=== PATIENT | female | born 1980 | race Caucasian/White ===

== ENCOUNTER 2017-08-21 19:44 | Emergency (ER) | payer BC ==
--- NOTE | 2017-08-21 20:19 | EDM.PDOC ---
<Aidee Quintana - Last Filed: 08/21/17 21:48> ED HPI GENERAL MEDICAL PROBLEM - General Chief Complaint: General Stated Complaint: CHEST PAIN/BODYACHES/ITCHY Time Seen by Provider: 08/21/17 20:00 Source of Information: Reports: Patient History Limitations: Reports: No Limitations - History of Present Illness INITIAL COMMENTS - FREE TEXT/NARRATIVE: HISTORY AND PHYSICAL: History of present illness: [Patient comes to the emergency room complaining of upper abdominal discomfort. The pain has been coming and going for the past 3 days and feels like a squeezing/pressure sensation across her epigastric area, much worse on the right side. She has a history of acid reflux and has been taking Protonix 40 mg consistently for the last several years. The pain that she is experiencing today feels different. She's noticed that her pain is worse after eating meals of any type of food. She was unable to get comfortable last evening due to the pain in her abdomen. She's not had any fever or chills, chest pain, shortness of breath or difficulty breathing. No nausea or vomiting. No constipation or diarrhea. She has not taken any medication for her pain. She is due to the area and has not established with a local PCP. She smokes one pack of cigarettes per day. Denies alcohol use, and no history of heavy alcohol use. Denies history of hepatitis. Denies history of IV drug use. ] Review of systems: As per history of present illness and below otherwise all systems reviewed and negative. Past medical history: As per history of present illness and as reviewed below otherwise noncontributory. Surgical history: As per history of present illness and as reviewed below otherwise noncontributory. Social history: No reported history of drug or alcohol abuse. Family history: As per history of present illness and as reviewed below otherwise noncontributory. Physical exam: General: Well developed, well nourished female in no acute distress. Skin is warm, dry, pink, intact, anicteric. HEENT: Atraumatic, normocephalic. Oral mucous membranes are pink and moist. Neck supple, no lymphadenopathy. Lungs: Clear to auscultation, breath sounds equal bilaterally. No wheezing crackles or rales Heart: S1S2, regular rate and rhythm. Abdomen: Bowel sounds are normoactive throughout. She is tender with palpation over the right upper quadrant of her abdomen. Mild epigastric discomfort with palpation. No CVA tenderness. Abdomen is soft and not distended. Pelvis: Stable nontender. Genitourinary: Deferred. Rectal: Deferred. Extremities: Atraumatic, no cyanosis or edema to feet or lower legs. Neurovascular unremarkable. Neuro: Awake, alert, oriented. Motor and sensory unremarkable throughout. Exam nonfocal. Diagnostics: [CBC, CMP, lipase, amylase, UA, urine , CT abd and pelvis w/ contrast] Therapeutics: [] Impression: [] Plan: [] Definitive disposition and diagnosis as appropriate pending reevaluation and review of above. lower rib Pain Score (Numeric/FACES): 7 - Related Data Allergies Allergy/AdvReac Type Severity Reaction Status Date / Time No Known Allergies Allergy Verified 08/21/17 20:02 Home Meds: Home Meds Levothyroxine Sodium [Synthroid] 0 mcg PO DAILY 08/21/17 [History] Lisinopril 20 mg PO DAILY 08/21/17 [History] Pantoprazole Sodium [Protonix] 20 mg PO DAILY 08/21/17 [History] levETIRAcetam [Keppra] 1,000 mg PO DAILY 08/21/17 [History] metFORMIN [Glucophage XR] 0 mg PO BIDMEALS 08/21/17 [History] Past Medical History - Past Health History Medical/Surgical History: Denies Medical/Surgical History Cardiovascular History: Reports: Hypertension Gastrointestinal History: Reports: GERD [employer] History: Reports: Neurological History: Reports: Seizure Endocrine/Metabolic History: Reports: Diabetes, Type II, Hypothyroidism - Past Surgical History Female Surgical History: Reports: Section Social & Family History - Family History Family Medical History: Noncontributory - Tobacco Use Smoking Status *Q: Current Every Day Smoker Years of Tobacco use: 6 Packs/Tins Daily: 1 - Recreational Drug Use Recreational Drug Use: No ED ROS GENERAL - Review of Systems Review Of Systems: ROS reveals no pertinent complaints other than HPI. ED EXAM, GENERAL - Physical Exam Exam: See Below Course - Vital Signs Last Recorded V/S: Last Vital Signs Temp 36.8 C 08/21/17 19:44 Pulse 102 H 08/21/17 19:44 Resp 18 08/21/17 19:44 BP 151/99 H 02/12/18 19:44 Pulse Ox 99 08/21/17 19:44 - Orders/Labs/Meds Orders: Active Orders 24 hr Category Date Time Status Abdomen Pelvis w Cont [CT] Stat Exams 08/21/17 21:15 Taken HEPATITIS PANEL, ACUTE [REF] Stat Lab 08/21/17 20:29 Received Labs: Laboratory Tests 08/21/17 08/21/17 08/21/17 Range/Units 20:29 20:29 20:45 WBC 9.83 (4.0-11.0) K/uL RBC 4.59 (4.30-5.90) M/uL Hgb 13.1 (12.0-16.0) g/dL Hct 38.4 (36.0-46.0) % MCV 83.7 (80.0-98.0) fL MCH 28.5 (27.0-32.0) pg MCHC 34.1 (31.0-37.0) g/dL RDW Std Deviation 48.2 (28.0-62.0) fl RDW Coeff of Renata 16 H (11.0-15.0) % Plt Count 294 (150-400) K/uL MPV 9.80 (7.40-12.00) fL Neut % (Auto) 68.7 (48.0-80.0) % Lymph % (Auto) 21.2 (16.0-40.0) % [place] % (Auto) 6.6 (0.0-15.0) % Eos % (Auto) 3.2 (0.0-7.0) % Baso % (Auto) 0.3 (0.0-1.5) % Neut # (Auto) 6.8 H (1.4-5.7) K/uL Lymph # (Auto) 2.1 (0.6-2.4) K/uL [place] # (Auto) 0.7 (0.0-0.8) K/uL Eos # (Auto) 0.3 (0.0-0.7) K/uL Baso # (Auto) 0.0 (0.0-0.1) K/uL Nucleated RBC % 0.0 /100WBC Nucleated RBCs # 0 K/uL Sodium 134 L (136-146) mmol/L Potassium 3.9 (3.5-5.1) mmol/L Chloride 96 L (98-110) mmol/L Carbon Dioxide 23 (21-31) mmol/L BUN 7 (6.0-23.0) mg/dL Creatinine 0.8 (0.6-1.5) mg/dL Est Cr Clr Drug Dosing TNP Estimated GFR (MDRD) > 60.0 ml/min Glucose 375 H (60-110) mg/dL Calcium 10.0 (8.8-10.8) mg/dL Total Bilirubin 3.9 H (0.1-1.5) mg/dL AST 98 H (5-40) IU/L ALT 562 H (8-54) IU/L Alkaline Phosphatase 300 H (40-150) Total Protein 8.3 H (6.0-8.0) g/dL Albumin 4.3 (3.5-5.0) g/dL Globulin 4.0 H (2.0-3.5) g/dL Albumin/Globulin Ratio 1.1 L (1.3-2.8) Amylase 35 (10-90) U/L Lipase 42 (7-80) U/L Urine Color Urine Appearance Urine pH (5.0-8.0) Ur Specific [place] (1.001-1.035) Urine Protein (NEGATIVE) mg/dL Urine Glucose (UA) (NEGATIVE) mg/dL Urine Ketones (NEGATIVE) mg/dL Urine Occult Blood (NEGATIVE) Urine Nitrite (NEGATIVE) Urine Bilirubin (NEGATIVE) Urine Ictotest Urine Urobilinogen (<2.0) EU/dL Ur Leukocyte Esterase (NEGATIVE) Urine RBC (0-2/HPF) Urine WBC (0-5/HPF) Ur Epithelial Cells (NONE-FEW) Urine Bacteria (NEGATIVE) Urine HCG, Qual NEGATIVE (NEGATIVE) 08/21/17 Range/Units 20:45 WBC (4.0-11.0) K/uL RBC (4.30-5.90) M/uL Hgb (12.0-16.0) g/dL Hct (36.0-46.0) % MCV (80.0-98.0) fL MCH (27.0-32.0) pg MCHC (31.0-37.0) g/dL RDW Std Deviation (28.0-62.0) fl RDW Coeff of Renata (11.0-15.0) % Plt Count (150-400) K/uL MPV (7.40-12.00) fL Neut % (Auto) (48.0-80.0) % Lymph % (Auto) (16.0-40.0) % [place] % (Auto) (0.0-15.0) % Eos % (Auto) (0.0-7.0) % Baso % (Auto) (0.0-1.5) % Neut # (Auto) (1.4-5.7) K/uL Lymph # (Auto) (0.6-2.4) K/uL [place] # (Auto) (0.0-0.8) K/uL Eos # (Auto) (0.0-0.7) K/uL Baso # (Auto) (0.0-0.1) K/uL Nucleated RBC % /100WBC Nucleated RBCs # K/uL Sodium (136-146) mmol/L Potassium (3.5-5.1) mmol/L Chloride (98-110) mmol/L Carbon Dioxide (21-31) mmol/L BUN (6.0-23.0) mg/dL Creatinine (0.6-1.5) mg/dL Est Cr Clr Drug Dosing Estimated GFR (MDRD) ml/min Glucose (60-110) mg/dL Calcium (8.8-10.8) mg/dL Total Bilirubin (0.1-1.5) mg/dL AST (5-40) IU/L ALT (8-54) IU/L Alkaline Phosphatase (40-150) Total Protein (6.0-8.0) g/dL Albumin (3.5-5.0) g/dL Globulin (2.0-3.5) g/dL Albumin/Globulin Ratio (1.3-2.8) Amylase (10-90) U/L Lipase (7-80) U/L Urine Color YELLOW Urine Appearance SLT CLOUDY Urine pH 6.0 (5.0-8.0) Ur Specific [place] 1.020 (1.001-1.035) Urine Protein NEGATIVE (NEGATIVE) mg/dL Urine Glucose (UA) >=1000 (NEGATIVE) mg/dL Urine Ketones NEGATIVE (NEGATIVE) mg/dL Urine Occult Blood TRACE-INTACT (NEGATIVE) Urine Nitrite NEGATIVE (NEGATIVE) Urine Bilirubin MODERATE H (NEGATIVE) Urine Ictotest POSITIVE Urine Urobilinogen 0.2 (<2.0) EU/dL Ur Leukocyte Esterase NEGATIVE (NEGATIVE) Urine RBC 0-2 (0-2/HPF) Urine WBC 1-2 (0-5/HPF) Ur Epithelial Cells MODERATE (NONE-FEW) Urine Bacteria FEW (NEGATIVE) Urine HCG, Qual (NEGATIVE) Meds: Medications Discontinued Medications Generic Name Dose Route Start Last Admin Trade Name Maye PRN Reason Stop Dose Admin Iopamidol 100 ml 08/21/17 21:52 08/21/17 21:55 Isovue-370 (76%) IVPUSH 08/21/17 21:53 100 ml ONETIME STA Administration Departure - Departure Disposition: Home, Self-Care 01 Clinical Impression: Elevated liver function tests Abdominal pain Qualifiers: Abdominal location: right upper quadrant Qualified Code(s): R10.11 - Right upper quadrant pain - Discharge Information Referrals: PCP,None [Primary Care Provider] - Forms: ED Department Discharge Additional Instructions: The following information is given to patients seen in the emergency department who are being discharged to home. This information is to outline your options for follow-up care. We provide all patients seen in our emergency department with a follow-up referral. The need for follow-up, as well as the timing and circumstances, are variable depending upon the specifics of your emergency department visit. If you don't have a primary care physician on staff, we will provide you with a referral. We always advise you to contact your personal physician following an emergency department visit to inform them of the circumstance of the visit and for follow-up with them and/or the need for any referrals to a consulting specialist. The emergency department will also refer you to a specialist when appropriate. This referral assures that you have the opportunity for followup care with a specialist. All of these measure are taken in an effort to provide you with optimal care, which includes your followup. Under all circumstances we always encourage you to contact your private physician who remains a resource for coordinating your care. When calling for followup care, please make the office aware that this follow-up is from your recent emergency room visit. If for any reason you are refused follow-up, please contact the [facility] emergency department at and ask to speak to the emergency department charge nurse. [facility]-General [facility] Professional Building [address] [place] [address] [address] [place] [address] Push hydration and do not take Tylenol for pain. Do not eat or drink anything after 12 midnight tonight and proceed to return to registration at 7 AM to get test performed per the prescriptions you have been given. He will be contacted by my nurse in the morning with your follow-up appointment time with Dr. Frias. Return to ER sooner as needed and as discussed <Marianne King - Last Filed: 08/21/17 22:30> ED HPI GENERAL MEDICAL PROBLEM - History of Present Illness INITIAL COMMENTS - FREE TEXT/NARRATIVE: This is Dr. King dictating an addendum note as I assumed care of this case at 10 PM. Agree with history and physical as above and the patient tells me the pain came on very gradually over the last 3 days and is in the epigastric and right upper quadrant area. She's not had fevers chills vomiting or diarrhea. Currently on my evaluation she has very minimal tenderness in the right upper quadrant on deep palpation and she does not look jaundiced and she is nontoxic and moves easily in the ED. I discussed with her and her significant other at bedside at length all testing results and I will also discuss this case with Dr. Frias at 22:16 PM. As she is not needing admission but does need follow- up of these tests we will proceed to repeat her CBC with differential and CMP tomorrow morning and schedule an MRCP to be performed tomorrow morning. My day shift charge nurse will contact Dr. Frias's clinic and schedule an afternoon follow-up so that he can review all of these test results and decide the care plan. Dr. Frias is comfortable with this care plan and they have also notified radiology. The patient has given me a cell phone that she says she will await a phone call for follow-up appointment. She was also told to not eat or drink anything after midnight per Dr. Frias's instructions. Patient is also aware that the hepatitis panel is a send out and will not get those results for several days but if there are abnormalities we will contact her. Impression: Elevated liver function tests etiology unclear, clinically stable ED ROS GENERAL - Review of Systems Review Of Systems: ROS reveals no pertinent complaints other than HPI. ED EXAM, GENERAL - Physical Exam Exam: See Below (See dictation) Departure - Departure Time of Disposition: 22:29 Condition: Good
[2017-08-21 21:07] LABS: CHLORIDE,CL 96 mmol/L (98-110); SODIUM,NA 134 mmol/L (136-146)
[2017-08-21] MEDS ORDERED: Iopamidol 755 Mg/ML 100 ML Bottle IVPUSH STA (21:52)
--- NOTE | 2017-08-22 09:38 | CT ---
EXAM DATE: 08/21/17 PATIENT'S AGE: 36 Patient: AUSTEN JOHNSON Facility: [place], [place] Site . Site : [id number] Study: CT Abdomen/Pelvis With [id number]/12/2018 9:56:09 PM Ordering Physician: Doctor Palacio Final Report: INDICATION: Right upper quadrant abdominal pain TECHNIQUE: CT Abdomen and pelvis with i.v. contrast. Coronal and sagittal reformats were obtained. CONTRAST: Intravenous COMPARISON: None FINDINGS: Lower chest: Unremarkable. Liver: Unremarkable. Spleen: Unremarkable. Pancreas: Unremarkable. Gallbladder: The gallbladder is contracted but otherwise unremarkable in appearance. Kidney: Unremarkable. No kidney or ureteral stones or obstruction seen. Adrenal: Unremarkable. Bowel: Unremarkable. The appendix is normal in appearance and size. Vascular: Unremarkable. Lymph: Unremarkable. Peritoneum: Unremarkable. No pneumoperitoneum is seen. No significant ascites is noted. Pelvis: Unremarkable. Soft tissue: Unremarkable. Bone: Unremarkable for age. IMPRESSION: 1. Unremarkable with no CT correlate for the patient`s symptoms seen. Dictated by Favian Hicks MD @ 08/21/2017 10:02:48 PM Dictated by: Favian Hicks MD @ 08/21/2017 22:02:58 (Electronic Signature) Report Signed by Proxy. DALTON
== END 2017-08-21 22:50 | disposition home or self-care (01) ==
LOC: MW.ED 19:44
DX: R10.11 Right upper quadrant pain (principal); R74.8 Abnormal levels of other serum enzymes; I10 Essential (primary) hypertension; K21.9 Gastro-esophageal reflux disease without esophagitis; E11.9 Type 2 diabetes mellitus without complications; E03.9 Hypothyroidism, unspecified; F17.210 Nicotine dependence, cigarettes, uncomplicated; Z79.84 Long term (current) use of oral hypoglycemic drugs; Z79.899 Other long term (current) drug therapy
CPT/HCPCS: 36415; 74177; 80053; 81001; 81025; 82150; 83690; 85025; 99284; Q9967; 74181; 74181-26; 80074; 99283